=== PATIENT | female | born 1950 | race Caucasian/White ===

== ENCOUNTER 2018-08-31 17:18 | Observation (INO) ==
[2018-09-01] MEDS ORDERED: Acetaminophen 500 MG Tablet PO PRN (00:11)
[2018-09-01] MEDS ORDERED: Sodium Chloride 0.9% 2 ML Flush PRN IV.FLUSH (00:11)
[2018-09-01 04:13] LABS: Creatine Kinase 79 U/L (26-192)
[2018-09-01 07:25] VITALS: RESP 16
--- NOTE | 2018-09-01 08:30 | P.HPCA ---
History of Present Illness Primary Care Physician: Krishna Knight MD Chief Complaint: Chest pain and dyspnea History of Present Illness: 67 year old female with history of hypertension, hypothyroidism, Moser's esophagus, and statin intolerant presents to ER for further evaluation of chest pain and dyspnea. Yesterday morning woke up in general state of health, walked her normal 2 miles, and once home bent over to clean cat litter box. Upon standing up experienced quick onset of dyspnea. Did not hurt to breath. Duration 45 minutes, reports slowly resolved. Dyspnea returned most of day with minimal exertion, quickly resolving with rest. Associated left anterior chest pain, characterized as vague "pulled muscle feeling." Radiation to left side of neck and left shoulder. Though maybe discomfort related to frequently lifting her #27 pound grandson. Duration constant, currently reports discomfort as mild. Not reproducible with palpation. No recent travel, illness, or injury. Denies similar pain in the past. Former 2 pack a day smoker, quit 25 years ago. Past cardiac testing Remote exercise cardiac testing Social history Known hypertension and hyperlipidemia, however she is statin intolerant. No known CAD or diabetes. Former 2 pack/day smoker, quit 25 years ago. No alcohol or recreational drug use. Walks at least 2 miles daily and assist in caring for grandson regular basis. Family history Noncontributory for early onset cardiovascular disease. - Diagnosis (1) Chest pain of unknown etiology (2) Hypothyroid (3) Hypertension (4) History of Moser's esophagus (5) History of depression Review of Systems All other systems reviewed negative except as stated in HPI [facility] - History History Provided By: Patient - Medical History Medical History: Medical History (Last Updated 09/01/18 @ 09:34 by KANE Joseph) Colitis Arthritis Cancer Depression HTN (hypertension) Hypothyroid - Surgical History Surgical History: Surgical History (Last Reviewed 09/01/18 @ 09:34 by KANE Joseph) H/O removal of cyst H/O right knee surgery H/O shoulder surgery - Family History Family History: Family History (Last Updated 09/01/18 @ 09:35 by KANE Joseph) Mother Age older than 85 years Father CAD (coronary artery disease) - Tobacco History Second Hand Smoke Exposure: No Tobacco Use In Past 30 Days: No Smoking Status: Former smoker Tobacco Type: Cigarettes Years Smoked: 25 Number of Pack Years (if former smoker): 50 - Alcohol History How Often Do You Have a Drink Containing Alcohol: 2 to 3 times a week - Substance Use History Substance History: No History of Abuse - Travel History Recent Travel in the [place] Within the Last 8 Weeks: No Recent Travel Out of the Country Within the Last 8 Weeks: No - Immunization History Tetanus Immunization Year if Known: 2015 Medications and Allergies Active Medications: Active Medications Acetaminophen (Tylenol) 500 mg PO Q4H PRN PRN Reason: HEADACHE Ondansetron HCl (Zofran Inj) 4 mg IV.PUSH Q6H PRN PRN Reason: NAUSEA OR VOMITING Sodium Chloride (Ns Flush) 2 ml IV.FLUSH BID SHEKHAR Sodium Chloride (Ns Flush) 2 ml IV.FLUSH PRN PRN PRN Reason: FLUSH AFTER USING IV ACCESS Allergies Allergy/AdvReac Type Severity Reaction Status Date / Time CANDACE Inhibitors Allergy Severe Hypotension Verified 08/31/18 17:27 celecoxib [From Celebrex] Allergy Severe Anaphylaxis Verified 08/31/18 17:27 codeine Allergy Severe Hallucinati Verified 08/31/18 17:27 ons fenofibrate Allergy Severe Vomiting Verified 08/31/18 17:27 latex Allergy Severe Rash Verified 08/31/18 17:27 Penicillins Allergy Severe Rash Verified 08/31/18 17:27 rabeprazole [From Aciphex] Allergy Severe Hypertensio Verified 08/31/18 17:27 n rosuvastatin [From Crestor] Allergy Severe Cramping Verified 08/31/18 17:27 of the Muscles simvastatin [From Zocor] Allergy Severe Cramping Verified 08/31/18 17:27 of the Muscles sulfamethoxazole Allergy Severe Anaphylaxis Verified 08/31/18 17:27 [From Bactrim] trimethoprim [From Bactrim] Allergy Severe Anaphylaxis Verified 08/31/18 17:27 Home Medications Medication Instructions Recorded Confirmed Type aspirin [Aspir-81] 81 mg PO DAILY 08/31/18 09/01/18 History cetirizine [Zyrtec] 5 mg PO HS 08/31/18 09/01/18 History levothyroxine [Synthroid] 100 mcg PO DAILY 08/31/18 09/01/18 History losartan [Cozaar] 100 mg PO DAILY 08/31/18 09/01/18 History naproxen [Naprosyn] 500 mg PO BID PRN 08/31/18 09/01/18 History omeprazole 20 mg PO DAILY 08/31/18 09/01/18 History paroxetine HCl [Paxil] 40 mg PO DAILY 08/31/18 09/01/18 History [id number] oil 1 cap PO BID 09/01/18 09/01/18 History Exam Vital signs: Vital Signs 09/01/18 01:19 09/01/18 07:22 Temperature 98.1 F Pulse Rate 67 80 Respiratory Rate 20 16 Blood Pressure 139/75 123/67 Pulse Oximetry 97 94 L Intake & Output 08/31/18 09/01/18 09/01/18 18:59 06:59 18:59 Weight 77.111 kg Other: Date of Last Bowel Movement 08/31/18 Weight On Admission 77.111 kg Narrative: GENERAL: Alert WN, WD, NAD, pleasant, female HEAD: NC, AT EYES: Sclera clear, conjunctiva without injection, pupils equal and round ENT: Mucous membranes pink and moist NECK: Supple, no masses, trachea midline CV: RRR, without murmur, rub, gallop, no JVD, S1-S2, chest wall nontender to palpation. RESP: Clear lungs throughout bilateral, no crackles, wheeze, rhonchi, symmetrical chest rise, nonlabored, able to speak in full sentences ABD: Soft, NT, ND, no masses, positive bowel tones EXT: Pulses +2x4, no dependent edema MS: Normal tone x4 extremities, nontender, no obvious deformities, full range of motion NEURO: CN II through CN XII grossly intact, motor strength 5/5 PSYCH: A+O x3, pleasant affect, appropriate speech, mood, insight and judgment SKIN: Normal turgor, normal texture, no lesions, no rashes, even hair distribution Results Cardiac Enzymes 09/01/18 09/01/18 Range/Units 00:25 03:20 Troponin I Less than 0.02 L Less than 0.02 L (0.02-0.05) ng/mL Intake and Output 08/31/18 09/01/18 09/01/18 22:59 06:59 14:59 Other: Date of Last Bowel Movement 08/31/18 Weight 77.111 kg Weight On Admission 77.111 kg EKG interpretations - EKG EKG results cardiology: sinus rhythm, normal axis (1st ekg-diffuse t wave inversion, 2nd ekg-diffuse t wave inversion, 3rd ekg-diffuse t wave less pronounced) Caprini VTE Risk Assessment Caprini VTE Risk Assessment: Moderate/High Risk (score >= 2) Caprini Risk Assessment Model: Point Value = 1 Point Value = 2 Point Value = 3 Point Value = 5 Age 41-60 Minor surgery BMI > 25 kg/m2 Swollen legs Varicose veins or History of unexplained or recurrent spontaneous Oral contraceptives or hormone replacement Sepsis (< 1 month) Serious lung disease, including pneumonia (< 1 month) Abnormal pulmonary function Acute myocardial infarction Congestive heart failure (< 1 month) History of inflammatory bowel disease Medical patient at bed rest Age 61-74 Arthroscopic surgery Major open surgery (> 45 min) Laparoscopic surgery (> 45 min) Malignancy Confined to bed (> 72 hours) Immobilizing plaster cast Central venous access Age >= 75 History of VTE Family history of VTE Factor V Leiden Prothrombin [id number] Lupus anticoagulant Anticardiolipin antibodies Elevated serum homocysteine Heparin-induced thrombocytopenia Other congenital or acquired thrombophilia Stroke (< 1 month) Elective arthroplasty Hip, pelvis, or leg fracture Acute spinal cord injury (< 1 month) Prophylaxis Regimen: Total Risk Factor Score Risk Level Prophylaxis Regimen 0-1 Low Early ambulation 2 Moderate Order ONE of the following: *Sequential Compression Device (SCD) *Heparin 5000 units SQ BID 3-4 Higher Order ONE of the following medications: *Heparin 5000 units SQ TID *Enoxaparin/Lovenox 40 mg SQ daily (WT < 150 kg, CrCl > 30 mL/min) *Enoxaparin/Lovenox 30 mg SQ daily (WT < 150 kg, CrCl > 10-29 mL/min) *Enoxaparin/Lovenox 30 mg SQ BID (WT < 150 kg, CrCl > 30 mL/min) AND/OR *Sequential Compression Device (SCD) 5 or more Highest Order ONE of the following medications: *Heparin 5000 units SQ TID (Preferred with Epidurals) *Enoxaparin/Lovenox 40 mg SQ daily (WT < 150 kg, CrCl > 30 mL/min) *Enoxaparin/Lovenox 30 mg SQ daily (WT < 150 kg, CrCl > 10-29 mL/min) *Enoxaparin/Lovenox 30 mg SQ BID (WT < 150 kg, CrCl > 30 mL/min) AND *Sequential Compression Device (SCD) Assessment and Plan - Assessment (1) Chest pain of unknown etiology Code(s): R07.89 - Other chest pain Status: Acute Plan: Admitted chest pain center. ACS ruled out with 3 sets of cardiac enzymes. 3 EKGs diffuse t wave inversion, less pronounced with 3rd EKG, no past EKGs for comparison. Continues to reports mild constant chest discomfort. Will be seen and evaluated by Dr. Wayne Tineo. Discussed possible cardiac testing later today after evaluation by planning coordinator. Chest discomfort atypical due to prolonged nature, however reported dyspnea an angina equivalent. Patient agreeable with plan of care and verbalizes understanding. (2) Hypothyroid Code(s): E03.9 - Hypothyroidism, unspecified Status: Chronic Plan: Continue levothyroxine (3) Hypertension Code(s): I10 - Essential (primary) hypertension Status: Acute Plan: Continue to monitor, continue losartan. (4) History of Moser's esophagus Code(s): Z87.19 - Personal history of other diseases of the digestive system Status: Chronic Plan: Continue omeprazole. (5) History of depression Code(s): Z86.59 - Personal history of other mental and behavioral disorders Status: Chronic Plan: Continue Paxil. H&P: Quality - VTE Deep Vein Thrombosis/Pulmonary Embolism Present on Admission: No (2) Hypothyroid Qualifiers: Hypothyroidism type: unspecified Qualified Code(s): E03.9 - Hypothyroidism, unspecified (3) Hypertension Qualifiers: Hypertension type: unspecified Qualified Code(s): I10 - Essential (primary) hypertension
[2018-09-01] MEDS ORDERED: Sodium Chloride 0.9% 2 ML Flush BID IV.FLUSH SCH (09:00)
--- NOTE | 2018-09-01 11:14 | P.PNCA ---
Subjective Interval history: 67-year-old lady presenting with shortness of breath and some chest pain. She was evaluated by the nurse practitioner and then presented. I then saw and examined her personally and further discussion regarding evaluation and therapy was carried out. I am in agreement with the documentation as entered. I recommended that we move to the nuclear stress test Medications and Allergies Active Medications: Active Medications Acetaminophen (Tylenol) 500 mg PO Q4H PRN PRN Reason: HEADACHE Ondansetron HCl (Zofran Inj) 4 mg IV.PUSH Q6H PRN PRN Reason: NAUSEA OR VOMITING Sodium Chloride (Ns Flush) 2 ml IV.FLUSH BID SHEKHAR Last Admin: 09/01/18 08:51 Dose: 2 ml Sodium Chloride (Ns Flush) 2 ml IV.FLUSH PRN PRN PRN Reason: FLUSH AFTER USING IV ACCESS Allergies Allergy/AdvReac Type Severity Reaction Status Date / Time CANDACE Inhibitors Allergy Severe Hypotension Verified 08/31/18 17:27 celecoxib [From Celebrex] Allergy Severe Anaphylaxis Verified 08/31/18 17:27 codeine Allergy Severe Hallucinati Verified 08/31/18 17:27 ons fenofibrate Allergy Severe Vomiting Verified 08/31/18 17:27 latex Allergy Severe Rash Verified 08/31/18 17:27 Penicillins Allergy Severe Rash Verified 08/31/18 17:27 rabeprazole [From Aciphex] Allergy Severe Hypertensio Verified 08/31/18 17:27 n rosuvastatin [From Crestor] Allergy Severe Cramping Verified 08/31/18 17:27 of the Muscles simvastatin [From Zocor] Allergy Severe Cramping Verified 08/31/18 17:27 of the Muscles sulfamethoxazole Allergy Severe Anaphylaxis Verified 08/31/18 17:27 [From Bactrim] trimethoprim [From Bactrim] Allergy Severe Anaphylaxis Verified 08/31/18 17:27 Home Medications Medication Instructions Recorded Confirmed Type aspirin [Aspir-81] 81 mg PO DAILY 08/31/18 09/01/18 History cetirizine [Zyrtec] 5 mg PO HS 08/31/18 09/01/18 History levothyroxine [Synthroid] 100 mcg PO DAILY 08/31/18 09/01/18 History losartan [Cozaar] 100 mg PO DAILY 08/31/18 09/01/18 History naproxen [Naprosyn] 500 mg PO BID PRN 08/31/18 09/01/18 History omeprazole 20 mg PO DAILY 08/31/18 09/01/18 History paroxetine HCl [Paxil] 40 mg PO DAILY 08/31/18 09/01/18 History [id number]-fish oil 1 cap PO BID 09/01/18 09/01/18 History Physical Exam Vital signs: Vital Signs 09/01/18 01:19 09/01/18 07:03 09/01/18 07:22 Temperature 98.1 F Pulse Rate 67 69 80 Respiratory Rate 20 16 Blood Pressure 139/75 123/67 Pulse Oximetry 97 94 L Intake & Output 08/31/18 09/01/18 09/01/18 18:59 06:59 18:59 Weight 77.111 kg Other: Date of Last Bowel Movement 08/31/18 Weight On Admission 77.111 kg Narrative: I am in agreement with documentation by the nurse practitioner. In addition on neck supple no JVD masses nodes or bruits Chest clear to auscultation with good breath sounds no rales wheezes or rhonchi although breath sounds are somewhat diminished towards the bases. Cardiovascular regular sinus rhythm with no gallops rubs or murmurs noted Abdomen soft nontender Results Cardiac Enzymes 09/01/18 09/01/18 Range/Units 00:25 03:20 Troponin I Less than 0.02 L Less than 0.02 L (0.02-0.05) ng/mL Intake and Output 08/31/18 09/01/18 09/01/18 22:59 06:59 14:59 Other: Date of Last Bowel Movement 08/31/18 Weight 77.111 kg Weight On Admission 77.111 kg Assessment and Plan - Assessment (1) Chest pain of unknown etiology Code(s): R07.89 - Other chest pain Status: Acute Plan: Admitted chest pain center. ACS ruled out with 3 sets of cardiac enzymes. 3 EKGs diffuse t wave inversion, less pronounced with 3rd EKG, no past EKGs for comparison. Continues to reports mild constant chest discomfort. Will be seen and evaluated by Dr. Wayne Tineo. Discussed possible cardiac testing later today after evaluation by manager corporate responsibility. Chest discomfort atypical due to prolonged nature, however reported dyspnea an angina equivalent. Patient agreeable with plan of care and verbalizes understanding. (2) Hypothyroid Code(s): E03.9 - Hypothyroidism, unspecified Status: Chronic Plan: Continue levothyroxine (3) Hypertension Code(s): I10 - Essential (primary) hypertension Status: Acute Plan: Continue to monitor, continue losartan. (4) History of Moser's esophagus Code(s): Z87.19 - Personal history of other diseases of the digestive system Status: Chronic Plan: Continue omeprazole. (5) History of depression Code(s): Z86.59 - Personal history of other mental and behavioral disorders Status: Chronic Plan: Continue Paxil. (2) Hypothyroid Qualifiers: Hypothyroidism type: unspecified Qualified Code(s): E03.9 - Hypothyroidism, unspecified (3) Hypertension Qualifiers: Hypertension type: unspecified Qualified Code(s): I10 - Essential (primary) hypertension
--- NOTE | 2018-09-01 11:19 | ECG ---
Date Performed: 09/01/2018 Time Performed: 03:05:14 PTAGE: 67 years EKG: Sinus rhythm NONSPECIFIC T-WAVE ABNORMALITY BORDERLINE ECG Mild T wave changes clinical correlation recommended PREVIOUS TRACING : 09/01/2018 00.31 DOCTOR: Wayne Tineo Interpretating Date/Time 09/01/2018 11:17:20
--- NOTE | 2018-09-01 11:20 | ECG ---
Date Performed: 09/01/2018 Time Performed: 00:31:34 PTAGE: 67 years EKG: Sinus rhythm MODERATE T-WAVE ABNORMALITY, CONSIDER ANTERIOR ISCHEMIA ABNORMAL ECG NO PREVIOUS TRACING DOCTOR: Wayne Tineo Interpretating Date/Time 09/01/2018 11:18:06
[2018-09-01 12:26] VITALS: BP 140/72; PULSE 73; TEMP 98; O2SAT 96
[2018-09-01] MEDS ORDERED: Regadenoson Inj 0.4 MG/5 ML Syringe IV.PUSH ONE (13:20)
--- NOTE | 2018-09-01 15:16 | NM ---
EXAM DATE: 09/01/2018 2:39 PM EST AGE/SEX: 67 years / Female INDICATIONS:Angina. . Shortness of breath and chest pain. CLINICAL DATA: This is the patient's initial encounter. Patient reports that signs and symptoms have been present for 1 day and indicates a pain score of 2/10. MEDICAL/SURGICAL HISTORY: Hypertension. Hypothyroidism. Colitis, Cervical cancer. . Right brien ulder surgery, neck cyst removal. COMPARISON: No prior exams available for comparison. DOSE: 8.7 mCi Tc 99m Myoview at rest 26.8 mCi [id number] at stress 0.4 mg Lexiscan STRESS SYMPTOMS: None. EJECTION FRACTION: 66 % TECHNIQUE: The patient underwent pharmacologic stress with infusion of prescribed dose. Continuous ECG tracing was monitored during stress. Gated SPECT imaging was performed after stress and conventi onal SPECT imaging was performed at rest. The examination was performed on a SPECT/CT scanner, both attenuation and non-corrected datasets were reviewed. FINDINGS: Distribution: The maximum perfused segment at stress is in the lateral wall. Perfusion Study: The pattern of perfusion at stress is within normal limits. Gated Study: There are intact wall motion and wall thickening without hypokinetic or dyskinetic segm ents. The ejection fraction is calculated at 66%. RISK CATEGORY: Low (<1% Annual Motality Rate) CONCLUSION: 1. Negative examination. Electronically signed by: Stephen Powers MD 09/01/2018 3:14 PM EST
--- NOTE | 2018-09-02 15:47 | TR ---
Date Performed: 09/01/2018 Time Performed: 13:27:02 DOCTOR: Georges Chambers DRUG LIST: CLINICAL HISTORY: REASON FOR TEST: Angina REASON FOR ENDING: OBSERVATION: CONCLUSION: COMMENTS: Lexiscan stress test was performed under standard four minute protocol. Radionuclide was injected one minute prior to ending the test. No electrocardiographic abormalities were present t o suggest ischemia. Nuclear imaging and interpretation are pending.
== END 2018-09-01 17:02 | disposition home or self-care (01) ==
LOC: NEPFCDU 17:18 → NEDDLT 17:18
PROVIDERS: ADMIT Internal Medicine Interventional Cardiology; ATTEND Internal Medicine Interventional Cardiology